=== PATIENT | female | born 1940 | race Caucasian/White ===

== ENCOUNTER → 2017-08-31 | Outpatient (CLI) | payer MEDICARE, OTHER ==
[~2017-08-31] MED LIST: ADULT LOW DOSE81 MG PO; ARIXTRA; CALCIUM PO; CLARITIN10 M2 PO; CLONAZEPAM PO; DESYREL PO; DUONEB 2.5-0.5 M3 ML INH; FERROUS GLUCON240 MG PO; FOLTX1 TAB PO; HYDROXYZINE PAM25 M1 PO; HYOSCYAMINE0.125 MG PO; KEFLEX500 MG PO; NORCO 5-325 TA1 EACH PO; OMEGA FISH OIL PO; OMEPRAZOLE20 M2 PO; PREDNISONE; PREDNISONE 20 M20 M1 PO; PREVACID 30MG C30 M1 PO; ROXICODONE5 M1 PO; SINGULAIR 10 MG10 M1 PO; TRAMADOL 50 MG50 MG PO; TUSSIONEX PENN473 ML PO; VALIUM5 MG PO; VITCB500GO PO; XOPENEX 0.63 MG/3 M1 INH; [UNRECOGNIZED DRUG - OTHER]; [UNRECOGNIZED DRUG - OTHER] PO
== END ==
LOC: M.RAD 08-24 07:50
DX: Z12.31 Encounter for screening mammogram for malignant neoplasm of breast (principal)

== ENCOUNTER → 2018-12-05 | Outpatient (CLI) | payer MEDICARE, OTHER | LOC: M.RAD 11-29 10:40 | DX: Z12.31 Encounter for screening mammogram for malignant neoplasm of breast (principal) ==

== ENCOUNTER → 2020-08-27 | Outpatient (CLI) | payer MEDICARE, OTHER | LOC: M.RAD 11:02 | DX: Z12.31 Encounter for screening mammogram for malignant neoplasm of breast (principal) ==

== ENCOUNTER → 2021-03-10 | Outpatient (CLI) | payer MEDICARE, OTHER ==
--- NOTE | 2021-03-10 10:45 | 2DMMODE ---
[place] [address] 2 D/M-MODE ECHOCARDIOGRAM Name: KIERSTEN DAWN Room: [facility]#: [id number] Admission: 03/10/21 Attend Phys: Isaiah Gamez, Discharge: Date of : 44 Date of Service: 03/10/21 1044 Report #: [id number] THIS REPORT FOR: cc: Yeyo Harris Steve T. DO Blick,Rivera Lombardi MD [facility] ~ APPROVED REPORT Study performed: 03/10/2021 10:00:34 EXAM: Comprehensive 2D, Doppler, and color-flow Echocardiogram Patient Location: Out-Patient BSA: 1.90 HR: 48 bpm BP: 150/80 mmHg Other Information Study Quality: Excellent Indications Murmur 2D Dimensions IVSd: 11.28 (7-11mm) LVOT Diam: 20.82 (18-24mm) LVDd: 48.55 mm PWd: 10.02 (7-11mm) Ascending Ao: 36.56 (22-36mm) LVDs: 26.82 (25-40mm) Aortic Root: 35.47 mm Volumes Left Atrial Volume (Systole) LA ESV Index: 13.70 mL/m2 Aortic Valve AoV Peak Patricio.: 1.57 m/s AO Peak Gr.: 9.87 mmHg LVOT Max P.78 mmHg AO Mean Gr.: 5.69 mmHg LVOT Mean P.00 mmHg LVOT Max V: 0.97 m/s AO V2 VTI: 39.74 cm LVOT Mean V: 0.66 m/s CAMILLE (VTI): 2.25 cm2 LVOT V1 VTI: 26.27 cm Mitral Valve E/A Ratio: 0.82 [place] [address] 2 D/M-MODE ECHOCARDIOGRAM Name: KIERSTEN DAWN Room: [facility]#: [id number] Admission: 03/10/21 Attend Phys: Isaiah Gamez, Discharge: Date of : 44 Date of Service: 03/10/21 1044 Report #: [id number] MV Decel. Time: 252.78 ms MV E Max Patricio.: 0.71 m/s MV PHT: 73.31 ms MVA (PHT): 3.00 cm2 TDI E/Lateral E': 7.89 E/Medial E': 6.45 Medial E' Patricio.: 0.11 m/s Lateral E' Patricio.: 0.09 m/s Pulmonary Valve PV Peak Patricio.: 0.83 m/s PV Peak Gr.: 2.76 mmHg Tricuspid Valve RAP Estimate: 5.00 mmHg TR Peak Gr.: 23.35 mmHg RVSP: 28.35 mmHg PA Pressure: 28.35 mmHg Left Ventricle The left ventricle is normal size. There is normal LV segmental wall motion. There is normal left ventricular wall thickness. Left ventricular systolic function is normal. The left ventricular ejection fraction is within the normal range. LVEF is 55-60%. Grade I - abnormal relaxation pattern. Right Ventricle The right ventricle is normal size. The right ventricular systolic function is normal. Atria The left atrium size is normal. The right atrium size is normal. Aortic Valve The aortic valve is normal in structure. No aortic regurgitation is present. There is no aortic valvular stenosis. Mitral Valve The mitral valve is normal in structure. trace mitral regurgitation. No evidence of mitral valve stenosis. Tricuspid Valve The tricuspid valve is normal in structure. Mild tricuspid regurgitation. [place] [address] 2 D/M-MODE ECHOCARDIOGRAM Name: KIERSTEN DAWN Room: [facility]#: [id number] Admission: 03/10/21 Attend Phys: Isaiah Gamez, Discharge: Date of : 44 Date of Service: 03/10/21 1044 Report #: [id number] The pulmonary valve is normal in structure. Mild pulmonic regurgitation. Great Vessels The aortic root is normal in size. IVC is normal in size and collapses >50% with inspiration. Pericardium There is no pericardial effusion. <Conclusion> Left ventricular systolic function is normal. The left ventricular ejection fraction is within the normal range. <ELECTRONICALLY SIGNED> By: Rivera Wyman MD, FACC 03/10/21 1044 45 Rivera Wyman MD, FACC /INF
== END ==
LOC: M.CRD 09:46
PROVIDERS: ATTEND Internal Medicine Cardiovascular Disease
DX: I08.8 Other rheumatic multiple valve diseases (principal); R01.1 Cardiac murmur, unspecified

== ENCOUNTER → 2021-06-13 | Outpatient (CLI) | payer MEDICARE, OTHER ==
--- NOTE | 2021-06-14 12:57 | CARDNUC ---
[place] [address] CARDIAC NUCLEAR IMAGING REPORT Name: KIERSTEN DAWN Room: [facility]#: [id number] Admission: 06/13/21 Attend Phys: Isaiah Gamez, Discharge: Date of : 44 Date of Service: 06/14/21 1256 Report #: [id number] THIS REPORT FOR: cc: Yeyo Harris Steve T. DO Liston,Isaiah Kaye MD [facility] ~ APPROVED REPORT Imaging Protocol: Rest Tc-99m/Stress Tc-99m 1 day Study performed: 06/13/2021 10:21:36 Indication: Chest pain Stress Tech: yue grace Stress Nurse: Johana Koch RN NM Tech:SHANTELLE Nieto Ht: 5 ft 6 in Wt: 188 lbs BSA: 1.95 m2 BMI: 30.34 Medical History Medical History: Diabetes, Hyperlipidemia Medications: zetia Allergies: multiple Cardiac Risk Factors: Age, DM, Hyperlipidemia Exercise History: Indeterminate Resting Data Rest SPECT myocardial perfusion imaging was performed in supine position 30 minutes following the intravenous injection of 9.7 mCi of Tc-99m Sestamibi. Time of rest injection: 914 Date: 06/13/2021 The images were gated to evaluate regional wall motion and calculate left ventricular ejection fraction. Administration Route: IV Administration Site: Left AC Pharmacologic Stress Pharmacologic stress test was performed by injecting Regadenoson 0.4 mg IV push over 10-15 seconds immediately followed by the intravenous injection of 35.1 mCi of Tc-99m Sestamibi. Time of stress injection: 1030 Date: 06/13/2021 Administration Route: IV Administration Site: Left AC Gated Stress SPECT was performed 40 [place] [address] CARDIAC NUCLEAR IMAGING REPORT Name: KIERSTEN DAWN [id number] Admission: 06/13/21 Attend Phys: Isaiah Gamez, Discharge: Date of : 44 Date of Service: 06/14/21 1256 Report #: [id number] injection. The images were gated to evaluate regional wall motion and calculate left ventricular ejection fraction. Prone imaging was performed. Stress Test Details Stress Test: Pharmacologic stress testing performed using 0.4 mg of regadenoson per 5 mL given IV over 10 seconds. Reason for pharmacologic stress test: physical limitation. HR Max Heart Rate (APMHR): 142 bpm Resting HR: 55 bpm Target HR (85% APMHR): 120 bpm Max HR Achieved: 72 bpm % of APMHR: 50 Recovery HR: 71 bpm BP Resting BP: 176/92 mmHg Max BP: 123/76 mmHg Recovery BP: 117/63 mmHg ECG Resting ECG: Sinus Rhythm Stress ECG: Sinus Rhythm ST Change: None Arrhythmia: None Recovery ECG: Sinus Rhythm Recovery ST Change: None Recovery Arrhythmia: None Clinical Reason for Termination: Completed protocol The patient tolerated Lexiscan infusion without significant cardiac symptom. 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 yesterday the patient called and was concerned about an onset of vertigo. Dr Leavitt was consulted and he wanted the patient to go ahead with the test Stress ECG Conclusion The baseline twelve-lead EKG shows sinus rhythm with no significant ST segment or T wave abnormality. EKGs obtained during and post Lexiscan infusion show sinus rhythm with no significant ST segment changes when compared to baseline. There were no [place] [address] CARDIAC NUCLEAR IMAGING REPORT Name: KIERSTEN DAWN ORI Room: [facility]#: [id number] Admission: 06/13/21 Attend Phys: Isaiah Gamez, Discharge: Date of : 44 Date of Service: 06/14/21 1256 Report #: [id number] Study Quality Study: Good Artifact: No artifact Study Data At rest, the left ventricular ejection fraction was 70%.. Post stress, the left ventricular ejection was 75%.. TID = 0.82. Perfusion Perfusion images obtained at rest and post Lexiscan stress showed uniform uptake of the radioisotope throughout the myocardium. There were no defects to suggest infarct or ischemia. Wall Motion Normal left ventricular wall motion. Nuclear Conclusion ECG Findings: negative for ischemia Clinical Findings: negative for ischemia Nuclear Findings: negative for ischemia Exercise Capacity: not assessed Left Ventricular Function: normal Risk Study: low Perfusion images show no defect to suggest infarct or ischemia. Left ventricular systolic function appears normal on gated studies. This is a low risk study. <Conclusion> The baseline twelve-lead EKG shows sinus rhythm with no significant ST segment or T wave abnormality. EKGs obtained during and post Lexiscan infusion show sinus rhythm with no significant ST segment changes when compared to baseline. There were no stress-induced arrhythmias. <ELECTRONICALLY SIGNED> By: Isaiah Gamez MD, FACC 06/14/21 1256 1256 1256 Isaiah Gamez MD, FACC /INF
== END ==
LOC: M.NUC 06-05 08:54 → M.CRD 06-16 13:00 → M.NUC 06-16 13:00 → M.CRD 06-16 14:00 → M.NUC 06-16 14:00
PROVIDERS: ATTEND Internal Medicine Cardiovascular Disease
DX: R07.9 Chest pain, unspecified (principal)